=== PATIENT | male | born 1935 | race Caucasian/White ===

== ENCOUNTER → 2017-05-28 | Outpatient (CLI) | payer MEDICARE, BC ==
[2017-05-28 10:33] LABS: HEMATOCRIT 42.3 % (37.9-51.0); HEMOGLOBIN 14.8 g/dL (13.5-17.0); HGB HCT DIFFERENCE 2.1; MEAN CORPUSCULAR HEMOGLOBIN 34.8 pg (27.0-33.4); MEAN CORPUSCULAR VOLUME 100 fl (80-97); RED BLOOD COUNT 4.24 10^6/uL (4.35-5.55); RED CELL DISTRIBUTION WIDTH 13.6 % (11.5-14.0); WHITE BLOOD COUNT 3.9 10^3/uL (4.0-10.5)
[2017-05-28 11:03] LABS: ANION GAP 9 (5-19); BLOOD UREA NITROGEN 27 mg/dL (7-20); CARBON DIOXIDE 27 mmol/L (22-30); CHLORIDE 107 mmol/L (98-107); CREATININE RESULT 1.24 mg/dL (0.52-1.25); GLUCOSE 97 mg/dL (75-110); POTASSIUM 4.5 mmol/L (3.6-5.0); SODIUM 142.5 mmol/L (137-145)
== END ==
LOC: OD 09:13
PROVIDERS: ATTEND Internal Medicine Cardiovascular Disease
DX: I49.1 Atrial premature depolarization (principal); R06.02 Shortness of breath
CPT/HCPCS: 36415; 80048; 83735; 85027

== ENCOUNTER → 2017-09-09 | Outpatient (CLI) | payer MEDICARE, BC ==
[2017-09-09 11:03] LABS: ANION GAP 9 (5-19); BLOOD UREA NITROGEN 36 mg/dL (7-20); CALCIUM 9.6 mg/dL (8.4-10.2); CARBON DIOXIDE 27 mmol/L (22-30); CHLORIDE 108 mmol/L (98-107); GLUCOSE 94 mg/dL (75-110); POTASSIUM 4.6 mmol/L (3.6-5.0); SODIUM 143.5 mmol/L (137-145)
== END ==
LOC: OD 09:43
PROVIDERS: ATTEND Internal Medicine Cardiovascular Disease
DX: I10 Essential (primary) hypertension (principal); Z79.899 Other long term (current) drug therapy
CPT/HCPCS: 36415; 80048

== ENCOUNTER → 2017-11-02 | Outpatient (CLI) | payer MEDICARE, BC ==
[2017-11-02 08:32] LABS: HEMATOCRIT 40.4 % (37.9-51.0); HEMOGLOBIN 14.1 g/dL (13.5-17.0); MEAN CORPUSCULAR HEMOGLOBIN 34.5 pg (27.0-33.4); MEAN CORPUSCULAR HGB CONC 34.9 g/dL (32.0-36.0); MEAN CORPUSCULAR VOLUME 99 fl (80-97); PLATELET COUNT 200 10^3/uL (150-450); RED BLOOD COUNT 4.09 10^6/uL (4.35-5.55); RED CELL DISTRIBUTION WIDTH 13.6 % (11.5-14.0)
[2017-11-02 09:06] LABS: ANION GAP 10 (5-19); BLOOD UREA NITROGEN 32 mg/dL (7-20); CALCIUM 9.3 mg/dL (8.4-10.2); CARBON DIOXIDE 26 mmol/L (22-30); CHLORIDE 109 mmol/L (98-107); GLUCOSE 107 mg/dL (75-110); POTASSIUM 4.4 mmol/L (3.6-5.0); SODIUM 145.1 mmol/L (137-145)
== END ==
LOC: OD 07:13
PROVIDERS: ATTEND Internal Medicine Cardiovascular Disease
DX: I49.1 Atrial premature depolarization (principal); R06.02 Shortness of breath; N18.9 Chronic kidney disease, unspecified
CPT/HCPCS: 36415; 80048; 83735; 85027

== ENCOUNTER → 2018-01-19 | Outpatient (CLI) | payer MEDICARE, BC ==
[2018-01-19 08:54] LABS: CHOLESTEROL 142.42 mg/dL (0-200); TRIGLYCERIDES 73 mg/dL (<150)
[2018-01-19 09:05] LABS: DIRECT LDL 62 mg/dL (<100)
== END ==
LOC: OD 07:55
PROVIDERS: ATTEND Internal Medicine Cardiovascular Disease
DX: E78.2 Mixed hyperlipidemia (principal)
CPT/HCPCS: 36415; 80061; 84443

== ENCOUNTER → 2018-10-12 | Outpatient (CLI) | payer MEDICARE, BC ==
[2018-10-12 11:16] LABS: ALANINE AMINOTRANSFERASE 12 U/L (21-72); ALBUMIN 4.3 g/dL (3.5-5.0); ALKALINE PHOSPHATASE 63 U/L (38-126); ANION GAP 9 (5-19); ASPARTATE AMINO TRANSFERASE 33 U/L (17-59); BILIRUBIN,DIRECT 0.2 mg/dL (0.0-0.4); BILIRUBIN,TOTAL 0.9 mg/dL (0.2-1.3); BLOOD UREA NITROGEN 40 mg/dL (7-20); CALCIUM 9.6 mg/dL (8.4-10.2); CARBON DIOXIDE 26 mmol/L (22-30); CHLORIDE 106 mmol/L (98-107); GLUCOSE 100 mg/dL (75-110); POTASSIUM 4.7 mmol/L (3.6-5.0); SODIUM 140.8 mmol/L (137-145); TOTAL PROTEIN 7.4 g/dL (6.3-8.2); TRIGLYCERIDES 70 mg/dL (<150); URIC ACID 4.6 mg/dL (3.5-8.5)
[2018-10-12 11:27] LABS: DIRECT LDL 76 mg/dL (<100)
== END ==
LOC: OD 10:09
PROVIDERS: ATTEND Internal Medicine Cardiovascular Disease
DX: M10.9 Gout, unspecified (principal); E78.00 Pure hypercholesterolemia, unspecified; I10 Essential (primary) hypertension; I49.1 Atrial premature depolarization; Z79.899 Other long term (current) drug therapy
CPT/HCPCS: 36415; 80048; 80061; 80076; 83735; 84550

== ENCOUNTER → 2019-04-20 | Outpatient (CLI) | payer MEDICARE, BC ==
[2019-04-20 09:33] LABS: ALBUMIN 4.4 g/dL (3.5-5.0); ALKALINE PHOSPHATASE 59 U/L (38-126); ANION GAP 12 (5-19); ASPARTATE AMINO TRANSFERASE 34 U/L (17-59); BILIRUBIN,DIRECT 0.2 mg/dL (0.0-0.4); BLOOD UREA NITROGEN 35 mg/dL (7-20); CALCIUM 9.5 mg/dL (8.4-10.2); CARBON DIOXIDE 24 mmol/L (22-30); CHLORIDE 107 mmol/L (98-107); CHOLESTEROL 149.77 mg/dL (0-200); GLUCOSE 88 mg/dL (75-110); POTASSIUM 4.6 mmol/L (3.6-5.0); TOTAL PROTEIN 7.6 g/dL (6.3-8.2); TRIGLYCERIDES 90 mg/dL (<150)
[2019-04-20 09:45] LABS: DIRECT LDL 87 mg/dL (<100)
== END ==
LOC: OD 08:38
PROVIDERS: ATTEND Internal Medicine Cardiovascular Disease
DX: I35.9 Nonrheumatic aortic valve disorder, unspecified (principal); I10 Essential (primary) hypertension; E78.00 Pure hypercholesterolemia, unspecified; Z79.899 Other long term (current) drug therapy
CPT/HCPCS: 36415; 80048; 80061; 80076; 82977

== ENCOUNTER → 2019-06-23 | Outpatient (CLI) | payer MEDICARE, BC ==
[2019-06-23 11:15] LABS: ALBUMIN 4.1 g/dL (3.5-5.0); ALKALINE PHOSPHATASE 73 U/L (38-126); ASPARTATE AMINO TRANSFERASE 43 U/L (17-59); BILIRUBIN,DIRECT 0.2 mg/dL (0.0-0.4); BILIRUBIN,TOTAL 0.7 mg/dL (0.2-1.3); CHOLESTEROL 117.07 mg/dL (0-200); CREATINE KINASE 72 U/L (55-170); TOTAL PROTEIN 6.8 g/dL (6.3-8.2); TRIGLYCERIDES 61 mg/dL (<150)
[2019-06-23 11:26] LABS: DIRECT LDL 62 mg/dL (<100)
== END ==
LOC: OD 09:35
PROVIDERS: ATTEND Internal Medicine Cardiovascular Disease
DX: E78.00 Pure hypercholesterolemia, unspecified (principal); Z79.899 Other long term (current) drug therapy; R25.2 Cramp and spasm
CPT/HCPCS: 36415; 80061; 80076; 82550

== ENCOUNTER → 2020-01-03 | Outpatient (CLI) | payer MEDICARE, BC ==
[2020-01-03 11:55] LABS: ALBUMIN 4.1 g/dL (3.5-5.0); ALKALINE PHOSPHATASE 72 U/L (38-126); ANION GAP 6 (5-19); ASPARTATE AMINO TRANSFERASE 42 U/L (17-59); BLOOD UREA NITROGEN 35 mg/dL (7-20); CALCIUM 9.2 mg/dL (8.4-10.2); CARBON DIOXIDE 26 mmol/L (22-30); CHLORIDE 105 mmol/L (98-107); CHOLESTEROL 135.66 mg/dL (0-200); GLUCOSE 105 mg/dL (75-110); POTASSIUM 4.5 mmol/L (3.6-5.0); TOTAL PROTEIN 7.1 g/dL (6.3-8.2); TRIGLYCERIDES 61 mg/dL (<150)
[2020-01-03 12:06] LABS: DIRECT LDL 63 mg/dL (<100)
== END ==
LOC: OD 10:43
PROVIDERS: ATTEND Physician Assistant
DX: E78.00 Pure hypercholesterolemia, unspecified (principal); I10 Essential (primary) hypertension; F10.20 Alcohol dependence, uncomplicated; Z79.899 Other long term (current) drug therapy
CPT/HCPCS: 36415; 80048; 80061; 80076; 82977

== ENCOUNTER → 2020-04-27 | Outpatient (CLI) | payer BC, MEDICARE ==
[2020-04-27 10:10] LABS: ALBUMIN 4.2 g/dL (3.5-5.0); ALKALINE PHOSPHATASE 81 U/L (38-126); ANION GAP 7 (5-19); ASPARTATE AMINO TRANSFERASE 45 U/L (17-59); BILIRUBIN,TOTAL 0.7 mg/dL (0.2-1.3); BLOOD UREA NITROGEN 32 mg/dL (7-20); CALCIUM 9.3 mg/dL (8.4-10.2); CARBON DIOXIDE 27 mmol/L (22-30); CHLORIDE 107 mmol/L (98-107); CHOLESTEROL 115.62 mg/dL (0-200); GLUCOSE 98 mg/dL (75-110); POTASSIUM 4.4 mmol/L (3.6-5.0); TOTAL PROTEIN 7.1 g/dL (6.3-8.2); TRIGLYCERIDES 64 mg/dL (<150)
[2020-04-27 10:35] LABS: DIRECT LDL 45 mg/dL (<100)
== END ==
LOC: OD 09:10
PROVIDERS: ATTEND Physician Assistant
DX: E78.00 Pure hypercholesterolemia, unspecified (principal); I12.9 Hypertensive chronic kidney disease with stage 1 through stage 4 chronic kidney disease, or unspecified chronic kidney disease; N18.9 Chronic kidney disease, unspecified; Z79.899 Other long term (current) drug therapy
CPT/HCPCS: 36415; 80048; 80061; 80076

== ENCOUNTER → 2020-06-21 | Outpatient (CLI) | payer MEDICARE, BC ==
[2020-06-21 11:13] LABS: BLOOD UREA NITROGEN 29 mg/dL (7-20)
== END ==
LOC: OD 09:44
PROVIDERS: ATTEND Urology
DX: R31.9 Hematuria, unspecified (principal)
CPT/HCPCS: 36415; 82565; 84520